=== PATIENT | female | born 1975 | race Hispanic/Latino ===

== ENCOUNTER 2020-05-24 13:51 | Emergency (ER) | payer MEDICARE ==
[2020-05-24] MEDS ORDERED: LEVETIRACETAM 500 MG/5 ML SD VIAL IV ONE (14:15)
[2020-05-24] MEDS ORDERED: DEXTROSE 50%-WATER 50 ML DISP.SYRIN IV ONE (16:35)
== END 2020-05-24 21:09 | disposition left against medical advice (07) ==
LOC: EDH 13:51
DX: G40.89 Other seizures (principal); I10 Essential (primary) hypertension; M19.90 Unspecified osteoarthritis, unspecified site; Z91.040 Latex allergy status; Z88.5 Allergy status to narcotic agent; Z88.1 Allergy status to other antibiotic agents; Z88.6 Allergy status to analgesic agent; Z88.8 Allergy status to other drugs, medicaments and biological substances
CPT/HCPCS: 36415; 70450; 80053; 80305; 81001; 82550; 83605; 85025; 93005; 96365; 96366; 96375; 99291; J1953; J7070

== ENCOUNTER → 2023-02-12 | Outpatient (CLI) | payer OTHER, SELFPAY ==
[~2023-02-12] MED LIST: REGADENOSON 0.4 MG/5 ML PF SYG IVP SCH
== END | disposition home or self-care (01) ==
LOC: RAH 08:32
PROVIDERS: ATTEND Internal Medicine Cardiovascular Disease
DX: I20.9 Angina pectoris, unspecified (principal); R07.9 Chest pain, unspecified; I25.9 Chronic ischemic heart disease, unspecified; I10 Essential (primary) hypertension; M79.602 Pain in left arm
CPT/HCPCS: 78452; 96374; 93017; J2785; A9500 ×2

== ENCOUNTER 2023-02-14 09:55 | Emergency (ER) | payer OTHER, SELFPAY ==
[~2023-02-14] VITALS: Ht 157.5 cm; Wt 48.1 kg
[2023-02-14] MEDS ORDERED: ACETAMINOPHEN WITH CODEINE 1 TAB TAB PO ONE (11:30)
[2023-02-14] MEDS ORDERED: HYDROCODONE/ACETAMINOPHEN 5/325 MG TAB PO ONE (11:30)
[2023-02-14 11:44] VITALS: BP 138/89
== END 2023-02-14 12:36 | disposition home or self-care (01) ==
LOC: EDH 09:55
DX: S96.912A Strain of unspecified muscle and tendon at ankle and foot level, left foot, initial encounter (principal); S80.812A Abrasion, left lower leg, initial encounter; G80.9 Cerebral palsy, unspecified; I10 Essential (primary) hypertension; Z88.5 Allergy status to narcotic agent; Z88.8 Allergy status to other drugs, medicaments and biological substances; Z91.040 Latex allergy status; X58.XXXA Exposure to other specified factors, initial encounter; Y93.89 Activity, other specified; Y92.89 Other specified places as the place of occurrence of the external cause; Y99.8 Other external cause status
CPT/HCPCS: 73600

== ENCOUNTER 2023-06-10 12:48 | Emergency (ER) | payer OTHER ==
[~2023-06-10] VITALS: Ht 162.6 cm; Wt 56.2 kg
[2023-06-10 12:53] VITALS: BP 163/90; PULSE 79; RESP 16
[2023-06-10 13:58] LABS: BASOPHILS % (AUTO) 0.6 % (0.0-5.0); EOSINOPHILS % (AUTO) 7.4 % (0.0-8.0); HEMATOCRIT 43.5 % (36-48); LYMPHOCYTES % (AUTO) 21.9 % (21.0-51.0); MEAN CORPUSCULAR HEMOGLOBIN 32.5 pg (27.0-33.0); MEAN CORPUSCULAR VOLUME 95.6 fL (79-99); MONOCYTES % (AUTO) 9.2 % (3.0-13.0); NEUTROPHILS % (AUTO) 60.6 % (40.0-77.0); PLATELET COUNT (AUTO) 223 K/uL (130-400); RED BLOOD CELL COUNT(AUTO) 4.55 MIL/uL (4.00-5.50); RED CELL DISTRIBUTION WIDTH 12.7 % (11.0-15.5); WHITE BLOOD COUNT (AUTO) 7.7 K/uL (4.8-10.8)
[2023-06-10 14:09] LABS: CARBON DIOXIDE 31 mmol/L (21-32); CHLORIDE 105 mmol/L (101-111); CREATININE 0.8 mg/dL (0.5-1.5); GLOMERULAR FILTR. RATE CALC 91 mL/min (>90); GLUCOSE,RANDOM 91 mg/dL (70-105); POTASSIUM 4.5 mmol/L (3.5-5.1); SODIUM SERUM 141 mmol/L (136-145); UREA NITROGEN, BLOOD 14 mg/dL (7-18)
[2023-06-10 14:13] LABS: ALANINE AMINOTRANSFERASE 34 U/L (12-78); ALBUMIN 3.7 g/dL (3.5-5.0); ASPARTATE AMINOTRANSFERASE 18 U/L (10-37); TOTAL PROTEIN, SERUM 7.3 g/dL (6.0-8.3)
[2023-06-10 14:14] LABS: CRP QUANTITATIVE < 2.00 mg/L (0.00-9.0)
[2023-06-10 15:01] LABS: ERYTHROCYTE SEDIMENTATION RATE 5 MM/HR (0-20)
== END 2023-06-10 15:03 | disposition home or self-care (01) ==
LOC: EDH 12:48
DX: G89.29 Other chronic pain (principal); M25.562 Pain in left knee; I10 Essential (primary) hypertension; Z88.5 Allergy status to narcotic agent; Z90.49 Acquired absence of other specified parts of digestive tract; Z91.040 Latex allergy status
CPT/HCPCS: 36415; 73562; 80053; 85025; 85651; 86140

== ENCOUNTER 2023-09-17 20:03 | Emergency (ER) | payer OTHER ==
[~2023-09-17] VITALS: Ht 162.6 cm; Wt 51.7 kg
[2023-09-17] MEDS ORDERED: BENZONATATE 100 MG CAPSULE PO STA (20:25)
[2023-09-17] MEDS ORDERED: IPRATROPIUM/ALBUTEROL SULFATE 3 ML SOLUTION IH ONE (20:30)
[2023-09-17 20:47] LABS: BASOPHILS # (AUTO) 0.06 K/uL (0.00-0.20); BASOPHILS % (AUTO) 0.5 % (0.0-5.0); EOSINOPHILS # (AUTO) 0.02 K/uL (0.00-0.70); EOSINOPHILS % (AUTO) 0.2 % (0.0-8.0); HEMATOCRIT 42.5 % (36-48); IMMATURE GRANULOCYTE ABSOLUTE 0.05 K/uL (0-1); LYMPHOCYTES # (AUTO) 2.4 K/uL (1.0-4.8); LYMPHOCYTES % (AUTO) 19.6 % (21.0-51.0); MEAN CORPUSCULAR HEMOGLOBIN 32.2 pg (27.0-33.0); MEAN CORPUSCULAR HGB CONC 34.4 g/dL (32.0-36.0); MEAN CORPUSCULAR VOLUME 93.6 fL (79-99); MONOCYTES # (AUTO) 0.8 K/uL (0.1-1.0); MONOCYTES % (AUTO) 6.6 % (3.0-13.0); NEUTROPHILS # (AUTO) 8.8 K/uL (1.8-7.7); NEUTROPHILS % (AUTO) 72.7 % (40.0-77.0); PLATELET COUNT (AUTO) 246 K/uL (130-400); RED BLOOD CELL COUNT(AUTO) 4.54 MIL/uL (4.00-5.50); RED CELL DISTRIBUTION WIDTH 12.2 % (11.0-15.5); WHITE BLOOD COUNT (AUTO) 12.1 K/uL (4.8-10.8)
[2023-09-17] MEDS ORDERED: HALOPERIDOL INJ 5 MG/ML VIAL ONE (20:55)
[2023-09-17] MEDS ORDERED: ONDANSETRON 4MG INJ ONE (20:55)
[2023-09-17] MEDS ORDERED: ONDANSETRON 4MG INJ IVP ONE (21:00)
[2023-09-17] MEDS ORDERED: HALOPERIDOL INJ 5 MG/ML VIAL IV SCH (21:00)
[2023-09-17 21:03] LABS: CREATININE 0.9 mg/dL (0.5-1.5); POTASSIUM 3.5 mmol/L (3.5-5.1)
[2023-09-17 21:08] LABS: B-TYPE NATRIURETIC PEPTIDE 21 pg/mL (0-100)
[2023-09-17 21:12] LABS: ALBUMIN 3.5 g/dL (3.5-5.0); BILIRUBIN,TOTAL 0.3 mg/dL (0.2-1.0); TOTAL PROTEIN, SERUM 7.7 g/dL (6.0-8.3)
[2023-09-17 21:47] LABS: INR < 0.93 (0.85-1.15); PROTHROMBIN TIME 10.6 SEC (9.6-11.6)
[2023-09-17 21:49] LABS: PARTIAL THROMBOPLASTIN TIME 26.2 SEC (26.3-35.5)
[2023-09-17] MEDS ORDERED: 0.9%NACL 1000ML 2,500 ML IV ONE (22:30)
[2023-09-17 23:20] LABS: SARS-CoV-2, RNA, NAAT NEGATIVE SARS CoV-2 (NEGATIVE)
[2023-09-17 23:24] LABS: INFLUENZA TYPE A Negative For Type A (NEGATIVE); INFLUENZA TYPE B Negative For Type B (NEGATIVE)
[2023-09-17] MEDS ORDERED: METO10TA41 PO (23:31)
[2023-09-17] MEDS ORDERED: OMEP40CA21 PO (23:31)
[2023-09-17] MEDS ORDERED: ONDA-104 PO (23:31)
[2023-09-17 23:57] VITALS: PULSE 117; RESP 26
[2023-09-18 00:41] VITALS: RESP 16
[2023-09-18 01:51] VITALS: BP 116/88; PULSE 98; O2SAT 99
== END 2023-09-18 02:10 | disposition home or self-care (01) ==
LOC: EDH 20:03
DX: R05.3 Chronic cough (principal); K21.9 Gastro-esophageal reflux disease without esophagitis; I10 Essential (primary) hypertension; Z21 Asymptomatic human immunodeficiency virus [HIV] infection status; Z88.0 Allergy status to penicillin; Z88.5 Allergy status to narcotic agent; Z90.49 Acquired absence of other specified parts of digestive tract; Z91.040 Latex allergy status; Z20.822 Contact with and (suspected) exposure to COVID-19
CPT/HCPCS: 99285; 96374; 71045; 87635; 82550; 84484; 80053; 83880; 84703; 85025; 85610; 85730; 87040 ×2; 87804 ×2; 83605; 36415; 93005; 94640; C9803; J7030; J1630; J2405

== ENCOUNTER 2025-07-07 13:16 | Observation (INO) | payer OTHER ==
[~2025-07-07] VITALS: Ht 157.5 cm; Wt 54.4 kg
[~2025-07-07 13:16] MED LIST changes: +ASPI-1114 PO; +DILT120C78 PO; +DOLU1TAB2 PO; +DOXA2TAB2 PO; +EZET10TA80 PO; +GABA-529 PO; +METO-409 PO; +MONT-39 PO; +ONDA-243 PO; -REGADENOSON 0.4 MG/5 ML PF SYG IVP SCH; +losartan PO
--- NOTE | 2025-07-07 13:22 | ERN ---
ED Note History of Present Illness Stated Complaint: HEMATEMESIS Chief Complaint: Hematemesis/Vomiting Blood Time Seen by MD: 13:18 Dictation: PATIENT IS A 50-YEAR-OLD FEMALE COMING IN TODAY WITH COMPLAINTS OF VOMITING TWO CUPS OF KP BLOOD WHEN SHE WOKE UP FROM A NAP AND HOUR AGO. SHE DENIES ANY ABDOMINAL PAIN AT THIS TIME NO HISTORY OF BLOOD THINNERS, NO GASTRITIS NO VARICES NO CIRRHOSIS. PRIMARY DOCTORS IN [facility]. NO PAIN AT THIS TIME. DENIES HISTORY OF MAALOX OR MILK OF MAGNESIA USE. DENIES ANY HISTORY OF GI BLEED UPPER OR LOWER Allergies: Coded Allergies: Iodinated Contrast Media (Verified Allergy, Severe, SEIZURES, 02/23/25) Latex, Natural Rubber (Unverified Allergy, Unknown, 05/24/20) Penicillins (Unverified Allergy, Unknown, 09/17/23) acetaminophen (Unverified Allergy, Unknown, 09/17/23) bacitracin (Unverified Allergy, Unknown, 05/24/20) hydrocodone (Unverified Allergy, Unknown, 09/17/23) morphine (Unverified Allergy, Unknown, 05/24/20) neomycin (Unverified Allergy, Unknown, 05/24/20) polymyxin B (Unverified Allergy, Unknown, 05/24/20) Home Meds Reported Medications Doxazosin Mesylate (Doxazosin Mesylate) 2 Mg Tablet, 1 TAB PO HS for 30 Days, #30 TAB 0 Refills 02/22/25 Gabapentin (Gabapentin) 100 Mg Capsule, 300 CAP PO DAILY for 30 Days, #90 CAP 0 Refills 02/22/25 Metoprolol Succinate (Metoprolol Succinate) 100 Mg Tab.er.24h, 1 TAB PO BID for 30 Days, #30 TAB 0 Refills 02/22/25 Ezetimibe (Ezetimibe) 10 Mg Tablet, 1 TAB PO DAILY for 30 Days, #30 TAB 0 Refills 02/22/25 [losartan] No Conflict Check, 50 MG PO DAILY 02/22/25 Montelukast Sodium (Montelukast Sodium) 10 Mg Tablet, 1 TAB PO DAILY for 30 Days, #30 TAB 0 Refills 02/22/25 Ondansetron (Ondansetron Odt) 4 Mg Tab.rapdis, 4 MG PO DAILY for nausea, TAB 02/22/25 Aspirin (Eleanor Chewable) 81 Mg Tab.chew, 81 MG PO DAILY, TAB.CHEW 02/22/25 Dolutegravir Sodium/Lamivudine (Dovato 50-300 mg Tablet) 50 Mg-300 Mg Tablet, 1 TAB PO DAILY for 30 Days, #30 TAB 0 Refills 02/22/25 Diltiazem HCl (Diltiazem ER) 120 Mg Capsule.er, 1 CAP PO DAILY for 30 Days, #30 CAP 0 Refills 02/22/25 Past Medical History Past Medical History: High Cholesterol, HIV, Hypertension, Other Additional Past Medical Hx: CEREBRAL PALSY Surgical History: Cholecystectomy, Surgical History Other: BILATERAL LEGS Family History: Negative Social History: Negative, Lives with family History: Not Applicable RN Note Reviewed/Agreed w/PFSH: Yes Review of System Dictation CONSTITUTIONAL: NEGATIVE EXCEPT FOR HPI HEAD/FACE: NEGATIVE EXCEPT FOR HPI EENT: NEGATIVE EXCEPT FOR HPI RESPIRATORY: NEGATIVE EXCEPT FOR HPI GASTROINTESTINAL/ABDOMINAL: NEGATIVE EXCEPT FOR HPI HEMATEMESIS GENITOURINARY: NEGATIVE EXCEPT FOR HPI MUSCULOSKELETAL: NEGATIVE EXCEPT FOR HPI INTEGUMENTARY: NEGATIVE EXCEPT FOR HPI NEUROLOGICAL/PSYCH: NEGATIVE EXCEPT FOR HPI HEMATOLOGIC/LYMPHATIC: NEGATIVE EXCEPT FOR HPI ALL SYSTEMS NEGATIVE, EXCEPT NOTED ABOVE. 13 POINT REVIEW OF SYSTEMS ASSESSED AND ALL NEGATIVE EXCEPT FOR ABOVE. Initial Vital Sign VS Vital Signs Date Time Temp Pulse Resp B/P (MAP) Pulse Ox O2 Delivery O2 Flow Rate FiO2 07/07/25 13:17 98.2 86 19 136/84 97 Room Air 0 07/07/25 14:26 21 Physical Exam Dictation VITAL SIGNS REVIEWED DAVIDE VILLAFANA IN ROOM WITH THE EXAM. GENERAL APPEARANCE: ALERT, ORIENTED X 3, NO ACUTE DISTRESS, WELL DEVELOPED, NOURISHED. 0/10 PAIN AT THE PRESENT TIME HEAD AND FACE: NON-TRAUMATIC. EYES: PERRL, PINK CONJUNCTIVAS, EYELID NO TRAUMA, ANTERIOR CHAMBER WITH ARCUS SENILIS. EARS: PINNAS INTACT AND NO SIGNS OF TRAUMA OR ERYTHEMA EAR CANALS CLEAR AND NO DISCHARGE TM NO ERYTHEMA NOSE: NO DISCHARGE, NO BLEEDING. OROPHARYNX: MOUTH NORMAL, TONGUE PINK, PHARYNX CLEAR,NO ERYTHEMA, TONSILS NO EXUDATES, NO ABSCESSES NOTED, MUCOUS MEMBRANE MOIST NECK: SUPPLE, NON-TENDER, NO THYROMEGALY, NO MASSES, NO JVD, NO BRUITS BREAST:DEFERRED CHEST:NO TENDERNESS, NO CREPITUS, NO PARADOXICAL MOVEMENT, NO RETRACTIONS LUNGS:CLEAR, WELL-VENTILATED, SYMMETRIC, NO RALES, NO WHEEZING, NO RHONCHI, NO STRIDOR, GOOD BREATH SOUNDS BILATERALLY HEART: REGULAR RATE, REGULAR RHYTHM, NO MURMUR, NO GALLOPS VASCULAR: NO PERIPHERAL EDEMA, ABDOMEN: SOFT, POSITIVE BOWEL SOUNDS, NONDISTENDED, NO GUARDING, NONTENDER, NO REBOUND, NO MASSES NO HEPATOMEGALY, NO SPLENOMEGALY, NO HOLLAND'S SIGN, NO HERNIAS. RECTAL: NO EXTERNAL LESIONS, TONE IS NORMAL. NO HEMORRHOIDS INTERNALLY, STOOL FOR GUAIAC SENT TO LAB. PATIENT ON MENSES. GENITAL: DEFERRED NEUROLOGICAL: NORMAL SPEECH, MOTOR FUNCTION INTACT, SENSORY FUNCTION INTACT MUSCULOSKELETAL: NECK NONTENDER, FULL RANGE OF MOTION, BACK NONTENDER, FULL RANGE OF MOTION, EXTREMITIES: NONTENDER, FULL RANGE OF MOTION SKIN: COLOR PINK, DRY, NO TURGOR, NO RASH, NO LACERATIONS, NO ABRASIONS, NO CONTUSIONS. LYMPHATIC: DEFERRED Results (Laboratory/Radiology) Laboratory/Radiology Laboratory Tests Test 07/07/25 13:34 07/07/25 17:42 White Blood Count 10.4 K/uL (4.8-10.8) Red Blood Count 4.34 MIL/uL (4.00-5.50) Hemoglobin 14.3 g/dL (12.0-16.0) Hematocrit 41.0 % (36-48) Mean Corpuscular Volume 94.5 fL (79-99) Mean Corpuscular Hemoglobin 32.9 pg (27.0-33.0) Mean Corpuscular Hemoglobin Concent 34.9 g/dL (32.0-36.0) Red Cell Distribution Width 12.7 % (11.0-15.5) Platelet Count 288 K/uL (130-400) Mean Platelet Volume 9.9 fL (7.5-10.5) Immature Granulocyte % (Auto) 0.3 % (0-1) Neutrophils (%) (Auto) 78.2 % (40.0-77.0) H Lymphocytes (%) (Auto) 13.2 % (21.0-51.0) L Monocytes (%) (Auto) 5.7 % (3.0-13.0) Eosinophils (%) (Auto) 2.2 % (0.0-8.0) Basophils (%) (Auto) 0.4 % (0.0-5.0) Neutrophils # (Auto) 8.2 K/uL (1.8-7.7) H Lymphocytes # (Auto) 1.4 K/uL (1.0-4.8) Monocytes # (Auto) 0.6 K/uL (0.1-1.0) Eosinophils # (Auto) 0.23 K/uL (0.00-0.70) Basophils # (Auto) 0.04 K/uL (0.00-0.20) Absolute Immature Granulocyte (auto 0.03 K/uL (0-1) Nucleated Red Blood Cells 0.0 % (0.0-0.19) Sodium Level 142 mmol/L (136-145) Potassium Level 4.0 mmol/L (3.5-5.1) Chloride Level 106 mmol/L (101-111) Carbon Dioxide Level 27 mmol/L (21-32) Blood Urea Nitrogen 10 mg/dL (7-18) Creatinine 0.6 mg/dL (0.5-1.0) Glomerular Filtration Rate Calc 110 mL/min (>90) Random Glucose 94 mg/dL (70-105) Total Calcium 8.8 mg/dL (8.5-10.1) Triglycerides Level 80 mg/dL (30-200) Lipase 216 U/L (16-77) H Stool Occult Blood POSITIVE (NEGATIVE) H REASON: LEFT UPPER QUADRANT PAIN TENDERNESS COMPARISON: None. FINDINGS: Lung bases are clear. There are no focal liver lesions. There are normal-appearing kidneys.. Spleen and pancreas appear unremarkable. The gallbladder is surgically absent with clips in the gallbladder fossa.. Bowel loops appear unremarkable. This includes normal appearance of the appendix There is no evidence of free fluid or intraperitoneal air. There are no focal fluid collections. Aorta and retroperitoneum appear normal as do pelvic soft tissue structures. The anterior abdominal wall is intact. Osseous structures appear unremarkable. LAB INSTRUCTOR structures appears within normal limits no mass or free fluid seen in the pelvis. IMPRESSION: 1. Negative noncontrast CT abdomen and pelvis. CT was performed with one or more following dose reduction techniques: automated exposure control, adjustment of the mA and kv according to parish Labs Reviewed?: Yes ED Course ED Course Orders Procedure Category Date Status Time Cbc With Differential LAB 07/07/25 Complete 13:19 Pantoprazole 40mg Inj PHA 07/07/25 Complete (Protonix 40mg Inj 13:30 Lipase LAB 07/07/25 Complete 13:19 Basic Metabolic Panel LAB 07/07/25 Complete 13:19 Triglycerides LAB 07/07/25 Complete 14:08 Ct Abdomen/Pelvis W/O CT 07/07/25 Resulted Contrast 14:53 Occult Blood Stool LAB 07/07/25 Complete Single Only 17:42 Dicyclomine Hcl PHA 07/07/25 Complete (Bentyl 20mg Inj) 18:30 Admit Orders ADM 07/07/25 Verified 18:34 Edm Admit Bridge Order ADM 07/07/25 Verified 18:34 Current Medications Medications (Trade) Dose Ordered Sig/Ayla Route PRN Reason Start Time Stop Time Status Last Admin Dose Admin Dicyclomine HCl (Bentyl 20mg Inj) 20 mg ONCE ONCE IM 07/07/25 18:30 07/07/25 18:31 DC Pantoprazole Sodium (PROTonix 40MG INJ) 40 mg ONCE ONCE IVP 07/07/25 13:30 07/07/25 13:31 DC 07/07/25 14:47 Vital Signs Date Time Temp Pulse Resp B/P (MAP) Pulse Ox O2 Delivery O2 Flow Rate FiO2 07/07/25 16:35 97.9 68 19 134/91 98 Room Air* 0 21 07/07/25 14:26 98.2 72 17 144/83 99 Room Air* 0 21 07/07/25 13:17 98.2 86 19 136/84 97 Room Air 0 1820/PATIENT AND BROTHER AT BEDSIDE ARE AWARE THAT I WE WILL BE ADMITTING HER HOSPITAL FOR UPPER GI BLEED/HEMATEMESIS ELEVATED LIPASE AND INTRACTABLE ABDOMINAL PAIN. ALL QUESTIONS [id number]/ 1835/SPOKE WITH LIOR MATHIS HOSPITALIST REVIEWED GUAIAC STOOL, PAIN MANAGEMENT AND CT RESULTS THEY AGREED TO ADMIT PATIENT. Medical Decision Making MDM MDM: DIFFERENTIAL DIAGNOSIS: UPPER GI BLEED/VARICES/ELECTROLYTE IMBALANCE/DEHYDRATION/ACUTE PANCREATITIS/DIVERTICULITIS RATIONALE: TESTS CONSIDERED AND ORDERED SECONDARY TO SHARED DECISION MAKING INCLUDE: LABS, AND RADIOLOGY PREVIOUS OUTSIDE RECORDS REVIEWED: OLD ER VISITS. RISK OF COMPLICATION AND/OR MORBIDITY OR MORTALITY OF PATIENT MANAGEMENT: NONE MEDICATIONS-PER MEDICATION RECONCILIATION NEED FOR HOSPITALIZATION: PATIENT DOES MEET CRITERIA FOR HOSPITALIZATION. MILD, WE WILL REQUIRE PAIN MANAGEMENT AND RETAIL TRAINING MANAGER CONSULTATION NEED FOR EMERGENCY MAJOR/MINOR SURGERY: NO THERE ARE NO SOCIAL CONCERNS WITH THIS PATIENT. PRESCRIPTION DRUG MANAGEMENT PRESCRIPTIONS WILL INCLUDE SYMPTOMATIC CARE PATIENT'S PRIOR EXTERNAL MEDICAL RECORDS FROM OTHER ER VISITS WERE REVIEWED BY ME INDICATED. PRIOR TESTING AND RESULTS FROM PREVIOUS VISITS WERE REVIEWED. PRIOR TESTS WERE TAKEN INTO ACCOUNT WITH MEDICAL DECISION MAKING AND RESOURCE UTILIZATION, INDEPENDENT HISTORIAN/HISTORIANS WERE USED TO OBTAIN COMPLETE MEDICAL HISTORY. I INDEPENDENTLY INTERPRETED THE TEST THAT WERE PERFORMED, RESULTS WERE REVIEWED BY ME AND CONSIDERED FINDINGS ON RADIOLOGY IF ORDERED. MEDICAL MANAGEMENT AND EXAMINATION INTERPRETATION DISCUSSIONS WERE HAD BY ME WITH OTHER QUALIFIED HEALTHCARE PROFESSIONALS INDICATED FOR THE PATIENT'S CARE. DX & DISP Disposition: Inpatient Decision to Admit Time: 18:29 Departure Impression: Primary Impression: Hematemesis of unknown etiology Additional Impressions: Elevated lipase, Intractable left upper quadrant abdominal pain Condition: Stable Referrals: [facility] (PCP) Time of Disposition: 18:29 I have reviewed the case, and I agree with, Diagnosis and Plan KEREN DIAZ NP Jul 07, 2025 13:22
[2025-07-07 13:52] LABS: IMMATURE GRANULOCYTE ABSOLUTE 0.03 K/uL (0-1); NUCLEATED RED BLOOD CELLS 0.0 % (0.0-0.19); PLATELET COUNT (AUTO) 288 K/uL (130-400); RED BLOOD CELL COUNT(AUTO) 4.34 MIL/uL (4.00-5.50); RED CELL DISTRIBUTION WIDTH 12.7 % (11.0-15.5); WHITE BLOOD COUNT (AUTO) 10.4 K/uL (4.8-10.8)
[2025-07-07 13:59] LABS: CREATININE 0.6 mg/dL (0.5-1.0); GLOMERULAR FILTR. RATE CALC 110.0 mL/min (>90); GLUCOSE,RANDOM 94.0 mg/dL (70-105); SODIUM SERUM 142.0 mmol/L (136-145); UREA NITROGEN, BLOOD 10.0 mg/dL (7-18)
--- NOTE | 2025-07-07 16:09 | HMCIMG ---
CT ABDOMEN/PELVIS W/O CONTRAST REASON: LEFT UPPER QUADRANT PAIN TENDERNESS COMPARISON: None. FINDINGS: Lung bases are clear. There are no focal liver lesions. There are normal-appearing kidneys.. Spleen and pancreas appear unremarkable. The gallbladder is surgically absent with clips in the gallbladder fossa.. Bowel loops appear unremarkable. This includes normal appearance of the appendix There is no evidence of free fluid or intraperitoneal air. There are no focal fluid collections. Aorta and retroperitoneum appear normal as do pelvic soft tissue structures. The anterior abdominal wall is intact. Osseous structures appear unremarkable. CARBON ACCOUNTANT structures appears within normal limits no mass or free fluid seen in the pelvis. IMPRESSION: 1. Negative noncontrast CT abdomen and pelvis. CT was performed with one or more following dose reduction techniques: automated exposure control, adjustment of the mA and kv according to patient's size, or use of a iterative reconstruction technique.
[2025-07-07] MEDS: DICYCLOMINE 20MG (10MG/ML) AMP IM ONE (18:38)
--- NOTE | 2025-07-07 18:53 | HP ---
[facility] HISTORY & PHYSICAL Date Patient Seen: Jul 07, 2025 Time of Visit: 2029 Supervising Physician: [Dr. Candido Patten ] Primary Care Physician: [Dr. Melvi Flores ] Outpatient Specialists: [ ] Inpatient Consults: [Dr. Ritesh Kate-GI ] PROBLEM LIST: Hematemesis-POA Intractable LUQ pain-POA Elevated lipase without imaging signs of pancreatitis, suspect reactive-POA Primary HTN HLD HIV Cerebral palsy PLAN: -Admit to medsurg telemetry -IV Protonix BID -PO Sucralfate x 1 pending GI studies -Consult GI MD, Dr. Kate, pending eval -Obtain gastric occult -IV NS @ 100 mls/hr -Type and screen, transfuse if Hg drops below 7 -Obtain H&H q6H serially for the next 24 hours -Manage abdominal pain and N/V PRN -Monitor CD4, LFTs, amylase and lipase levels HPI: [Patient is a 50-year-old female with PMH significant for HIV, HTN, HLD and cerebral palsy who has presented to the ED concerning acute onset hematemesis de scribed as 2 cups of bright red blood with no known triggers. She claims this is the first time it ever happened to her. She denies taking any blood thinners, NSAID abuse, ETOH dependence or DOAC; no prior HX of GI bleed, liver cirrhosis, or varices. She is currently on her menstrual cycle. Significant negatives are fever, chills, chest pain, diarrhea, constipation, melena or hematochezia. Pertinent positives are epigastric and LUQ abdominal pain. ED work up was unremarkable except for positive FOBT with stable H&H. CT AP was negative for acute findings. She was give a dose of IV Protonix and IM Bentyl. Physical assessment is unrevealing without abdominal tenderness or signs of ischemia or peritonitis. Abdomen is soft and with normoactive bowel sounds. Goals of care were discussed with the patient verbalizing understanding and agreement. ] PAST MEDICAL HX: see above PAST SURGICAL HX: noncontributory SOCIAL HISTORY: No tobacco, ETOH, or illicit drug use Coded Allergies: Iodinated Contrast Media (Verified Allergy, Severe, SEIZURES, 02/23/25) Latex, Natural Rubber (Unverified Allergy, Unknown, 05/24/20) Penicillins (Unverified Allergy, Unknown, 09/17/23) acetaminophen (Unverified Allergy, Unknown, 09/17/23) bacitracin (Unverified Allergy, Unknown, 05/24/20) hydrocodone (Unverified Allergy, Unknown, 09/17/23) morphine (Unverified Allergy, Unknown, 05/24/20) neomycin (Unverified Allergy, Unknown, 05/24/20) polymyxin B (Unverified Allergy, Unknown, 05/24/20) REVIEW OF SYSTEMS: 12 point ROS reviewed with patient. Pertinent positives mentioned above. Otherwise negative. PHYSICAL EXAM: GENERAL: alert, awake oriented x 3 HEENT: EOMI, Sclera non icteric, moist mucosa NECK: Supple, no JVD, trachea midline LUNGS: Clear breath sounds bilaterally. No wheezes HEART: Regular rate and rhythm. Normal S1 and S2, without murmurs ABD: Abdomen soft, nontender. Bowel sounds present EXT: No clubbing cyanosis or edema NEURO: Alert and oriented to person, follows commands Vital Signs (last 8hr) Date Time Temp Pulse Resp B/P (MAP) Pulse Ox O2 Delivery O2 Flow Rate FiO2 07/07/25 16:35 97.9 68 19 134/91 98 Room Air* 0 21 07/07/25 14:26 98.2 72 17 144/83 99 Room Air* 0 21 07/07/25 13:17 98.2 86 19 136/84 97 Room Air 0 LABS: Hematology Labs: Test 07/07/25 13:34 Range/Units White Blood Count 10.4 4.8-10.8 K/uL Red Blood Count 4.34 4.00-5.50 MIL/uL Hemoglobin 14.3 12.0-16.0 g/dL Hematocrit 41.0 36-48 % Mean Corpuscular Volume 94.5 79-99 fL Mean Corpuscular Hemoglobin 32.9 27.0-33.0 pg Mean Corpuscular Hemoglobin Concent 34.9 32.0-36.0 g/dL Red Cell Distribution Width 12.7 11.0-15.5 % Platelet Count 288 130-400 K/uL Mean Platelet Volume 9.9 7.5-10.5 fL Immature Granulocyte % (Auto) 0.3 0-1 % Neutrophils (%) (Auto) 78.2 H 40.0-77.0 % Lymphocytes (%) (Auto) 13.2 L 21.0-51.0 % Monocytes (%) (Auto) 5.7 3.0-13.0 % Eosinophils (%) (Auto) 2.2 0.0-8.0 % Basophils (%) (Auto) 0.4 0.0-5.0 % Neutrophils # (Auto) 8.2 H 1.8-7.7 K/uL Lymphocytes # (Auto) 1.4 1.0-4.8 K/uL Monocytes # (Auto) 0.6 0.1-1.0 K/uL Eosinophils # (Auto) 0.23 0.00-0.70 K/uL Basophils # (Auto) 0.04 0.00-0.20 K/uL Absolute Immature Granulocyte (auto 0.03 0-1 K/uL Nucleated Red Blood Cells 0.0 0.0-0.19 % Chemistry Labs: Test 07/07/25 13:34 Range/Units Sodium Level 142 136-145 mmol/L Potassium Level 4.0 3.5-5.1 mmol/L Chloride Level 106 101-111 mmol/L Carbon Dioxide Level 27 21-32 mmol/L Blood Urea Nitrogen 10 7-18 mg/dL Creatinine 0.6 0.5-1.0 mg/dL Glomerular Filtration Rate Calc 110 >90 mL/min Random Glucose 94 70-105 mg/dL Total Calcium 8.8 8.5-10.1 mg/dL Triglycerides Level 80 30-200 mg/dL Lipase 216 H 16-77 U/L DIAGNOSTICS / RADIOLOGY RESULTS: [ ] PLAN NEURO: Minimize central acting medications as possible. Maintain fall precautions, adequate lighting during the day PULMONARY: Supplemental 02 as needed. Maintain aspiration precautions at all times CARDIOVASCULAR: Follow hemodynamics. Vital signs per facility protocol GI & NUTRITION: Continue with nutritional support. Continue stool softeners and laxatives as needed. KIDNEYS & ELECTROLYTES: Strict monitoring of intake, output and overall fluid balance. Avoid nephrotoxic medications to the extent possible. Medications to be dosed according to renal function. Monitor electrolytes and replace as needed ENDOCRINE: Maintain blood glucose between 100-180 at all times. Hypoglycemia protocol in place INFECTIOUS DISEASE: Trend temperature, WBC and procalcitonin level Follow cultures, deescalate antibiotics as soon as possible. Panculture if new onset fever ONCOLOGY/HEMATOLOGY/COAGULATION: Monitor for s/s of bleeding Monitor hemoglobin, coagulation studies as needed SKIN: Pressure ulcer prevention per facility protocol Specialty mattress ORTHO/REHAB: Continue PT/OT Prophylaxis: Continue GI and DVT prophylaxis: SCD only, no AC due to GI bleed Code Status: Full Resuscitation Disposition: LIOR GONZÁLES Jul 07, 2025 18:53
[2025-07-07 20:11] LABS: ASPARTATE AMINOTRANSFERASE 34.0 U/L (10-37); TOTAL PROTEIN, SERUM 6.5 g/dL (6.0-8.3)
[2025-07-07 20:16] LABS: INR 0.98 (0.85-1.15)
[2025-07-07] MEDS: SUCRALFATE 1 GM/10 ML PO ONE (20:27)
[2025-07-07] MEDS: 0.9%NACL 1000ML 1,000 ML IV SCH (20:28)
--- NOTE | 2025-07-07 20:52 | NUR ---
DR LOPEZ BULL GANG WORKER PAGED FOR GI CONSULT PENDING CALL BACK;
--- NOTE | 2025-07-07 21:14 | NUR ---
REPORT ENDORSED TO MARIA LUZ VILLAFANA
--- NOTE | 2025-07-07 21:19 | NUR ---
GI CONSULT COMPLETE
--- NOTE | 2025-07-07 21:27 | NUR ---
CONSULT DR LOPEZ CALLED AND WAS INFORMED ABOUT NEW CONSULT. NEW ORDERS RECEIVED, PLEASE REFER TO CPOE.
[2025-07-07 21:30] VITALS: BP 154/93; PULSE 77; RESP 20; TEMP 97.7; O2SAT 98
--- NOTE | 2025-07-07 21:30 | NUR ---
ADMIT PT ADMITTED TO ROOM 328, AAOX3. DENIES OF ANY ABDOMINAL PAINS NOR DISCOMFORT AT THIS TIME. ADMISSION CARE DONE. ADMISSION V/S MONITORED, STABLE. PLACED TELE MONITOR ON PT, #45 WITH NSR HR=69. CONTINUED IVF OF NS REGULATED AT 100CC/HR. PLACED ON CLEAR LIQUID DIET FOR NOW, TOLERATING WELL. ADMISSION DATA BASE COMPLETED. HOME MEDS UPDATED IN THE COMPUTER. INSTRUCTED TO BE NPO POST MN FOR EGD IN AM. PT VERBALIZES UNDERSTANDING. CONSENT FOR EGD SIGNED BY PT, WITNESSED BY IN HOME TUTOR. FORM PLACED IN CHART. ORIENTED TO ROOM AND UNIT. IN FOR MORE CARE AND MANAGEMENT. Addendum: 07/07/25 at 2246 by MARIA LUZ PIZARRO RN RN Amended: Links added.
[2025-07-08] VITALS (25 sets, daily range): BP systolic 120–161; BP diastolic 50–98; PULSE 62–95; RESP 15–19; TEMP 97.3–98.5; O2SAT 98
--- NOTE | 2025-07-08 05:18 | NUR ---
ROUNDS PT SLEPT AT INTERVALS DURING THE SHIFT. NO DISTRESS NOTED. KEPT NPO FOR GI PROCEDURE TODAY. FOR MORE CARE AND MANAGEMENT.
[2025-07-08 05:40] LABS: IMMATURE GRANULOCYTE ABSOLUTE 0.02 K/uL (0-1); NUCLEATED RED BLOOD CELLS 0.0 % (0.0-0.19); PLATELET COUNT (AUTO) 243 K/uL (130-400); RED BLOOD CELL COUNT(AUTO) 4.01 MIL/uL (4.00-5.50); RED CELL DISTRIBUTION WIDTH 12.5 % (11.0-15.5); WHITE BLOOD COUNT (AUTO) 6.8 K/uL (4.8-10.8)
[2025-07-08 05:42] LABS: AMPHET/METH SCREEN,URINE NEGATIVE (NEGATIVE); BARBITURATE SCREEN, URINE NEGATIVE (NEGATIVE); CANNABINOID SCREEN,URINE NEGATIVE (NEGATIVE); COCAINE SCREEN,URINE NEGATIVE (NEGATIVE)
[2025-07-08 05:55] LABS: % IRON SATURATION 51.6 % (22-44); IRON, SERUM 140.0 mcg/dL (50-170)
[2025-07-08 05:57] LABS: PHOSPHORUS 3.6 mg/dL (2.5-4.9)
[2025-07-08] MEDS ORDERED: MIDAZOLAM HCL 1 MG/ML 2ML VIAL ONE (08:29)
[2025-07-08] MEDS ORDERED: GLYCOPYRROLATE 0.2 MG/ML 5 ML VIAL ONE (08:29)
[2025-07-08] MEDS ORDERED: LIDOCAINE PF 100MG/5ML (2%) SYRINGE 5ML ONE (08:30)
--- NOTE | 2025-07-08 09:48 | CONS ---
GASTROENTEROLOGY CONSULTATION NOTE Date of Consultation: Jul 08, 2025 Time of Consultation: 08:00 History of Present Illness: [ ] Reason for consult: hematemesis Ms. Allison Dill is a 50-year-old female with a past medical history of HIV on ART, hypertension, hyperlipidemia, and cerebral palsy who presented to the emergency department with two episodes of small-volume hematemesis. The patient reports that the hematemesis started yesterday after she took a nap. She experienced vomiting of red blood, which occurred twice. This is the first time she has experienced such an event. The patient denies any changes in her bowel habits since the onset of hematemesis. She mentions having pain on her side, which a doctor previously noted was swollen and inflamed. The patient was given medication for this condition but cannot recall the name or duration of treatment. Immediately following the episodes of vomiting, she experienced severe cramping in her abdominal area. Ms. Dill reports a history of cerebral palsy. She also mentions that doctors found blood in her skull, though the context and timing of this finding are unclear. The patient denies recent illnesses such as flu. Her eating habits have remained unchanged. Regarding her HIV status, the patient's adherence to antiretroviral therapy is unclear. She denies recent fever. The patient has not had an endoscopy procedure before and denies a history of acid reflux, heartbur n, or previous abdominal surgeries. Medical History - HIV - Hypertension - Hyperlipidemia - Cerebral palsy Current and Past Medications and Supplements - Antiretroviral therapy for HIV - Medication for hypertension - Medication for hyperlipidemia - Unspecified medication for swollen and inflamed area on side Social History - Living situation: Requires assistance with medication management Review of Systems - General: Denies fever - Gastrointestinal: Hematemesis, abdominal cramping, denies changes in bowel habits - Musculoskeletal: Pain in upper side [ ] Coded Allergies: Iodinated Contrast Media (Verified Allergy, Severe, SEIZURES, 02/23/25) Latex, Natural Rubber (Unverified Allergy, Unknown, 05/24/20) Penicillins (Unverified Allergy, Unknown, 09/17/23) acetaminophen (Unverified Allergy, Unknown, 09/17/23) bacitracin (Unverified Allergy, Unknown, 05/24/20) hydrocodone (Unverified Allergy, Unknown, 09/17/23) morphine (Unverified Allergy, Unknown, 05/24/20) neomycin (Unverified Allergy, Unknown, 05/24/20) polymyxin B (Unverified Allergy, Unknown, 05/24/20) Physical Exam: GEN: Awake, alert, oriented in person, time and place, and in no acute distress. HEENT: No sinus tenderness. Tympanic membranes were not examined. No rhinorrhea. Oral pharyngeal mucosa is pink, moist and within normal limits. Neck is supple with no cervical lymphadenopathy, thyromegaly or JVD. CHEST: Inspection, palpation and percussion of the chest were unremarkable. Lung auscultation revealed normal breath sounds bilaterally. CARDIAC: PMI is within normal limits. Heart sounds are regular. Normal S1, S2. No gallop or murmur. ABD: Soft, non-tender and not distended. No peritoneal signs on palpation. No organomegaly. Normal bowel sounds. EXT: No cyanosis or clubbing. No edema. SKIN: Intact. No rashes. JOINTS: No evidence of synovitis or acute arthritis. NEURO: Alert and oriented to name, place and person. Cranial nerve examination is unremarkable. No focal motor deficits. Normal speech. Gait is normal. Strength is normal. Vital Sign (Last 24 Hours) 07/08/25 07/08/25 09:15 09:35 Temp 97.3 Pulse 74 Resp 17 B/P (MAP) 140/83 Pulse Ox 99 O2 Delivery Room Air O2 Flow Rate 0.0 FiO2 21 Intake & Output (last 24hrs) 07/07/25 07/07/25 07/08/25 15:00 23:00 07:00 Intake Total 240 ml 670.0 ml Balance 240 ml 670.0 ml Laboratory: [ ] Laboratory: Test 07/08/25 05:58 07/08/25 05:24 07/08/25 05:20 07/07/25 19:39 Range/Units Whole Blood Glucose 94 70-110 MG/DL White Blood Count 6.8 # 4.8-10.8 K/uL Red Blood Count 4.01 4.00-5.50 MIL/uL Hemoglobin 13.5 12.0-16.0 g/dL Hematocrit 38.7 36-48 % Mean Corpuscular Volume 96.5 79-99 fL Mean Corpuscular Hemoglobin 33.7 H 27.0-33.0 pg Mean Corpuscular Hemoglobin Concent 34.9 32.0-36.0 g/dL Red Cell Distribution Width 12.5 11.0-15.5 % Platelet Count 243 130-400 K/uL Mean Platelet Volume 9.6 7.5-10.5 fL Immature Granulocyte % (Auto) 0.3 0-1 % Neutrophils (%) (Auto) 44.0 40.0-77.0 % Lymphocytes (%) (Auto) 30.5 21.0-51.0 % Monocytes (%) (Auto) 8.1 3.0-13.0 % Eosinophils (%) (Auto) 16.4 H 0.0-8.0 % Basophils (%) (Auto) 0.7 0.0-5.0 % Neutrophils # (Auto) 3.0 1.8-7.7 K/uL Lymphocytes # (Auto) 2.1 1.0-4.8 K/uL Monocytes # (Auto) 0.6 0.1-1.0 K/uL Eosinophils # (Auto) 1.12 H 0.00-0.70 K/uL Basophils # (Auto) 0.05 0.00-0.20 K/uL Absolute Immature Granulocyte (auto 0.02 0-1 K/uL Nucleated Red Blood Cells 0.0 0.0-0.19 % White Cell Morphology Comment See comments Phosphorus Level 3.6 2.5-4.9 mg/dL Magnesium Level 2.00 1.80-2.40 mg/dL Iron Level 140 50-170 mcg/dL Total Iron Binding Capacity 271 250-450 mcg/dL Percent Iron Saturation 51.6 H 22-44 % Amylase Level 46 25-115 U/L Lipase 29 16-77 U/L Serum Test, Qualitative NEGATIVE NEGATIVE Urine Opiates Screen NEGATIVE NEGATIVE Urine Barbiturates Screen NEGATIVE NEGATIVE Urine Phencyclidine Screen NEGATIVE NEGATIVE Urine Amphetamines Screen NEGATIVE NEGATIVE Urine Benzodiazepines Screen NEGATIVE NEGATIVE Urine Cocaine Screen NEGATIVE NEGATIVE Urine Marijuana (THC) Screen NEGATIVE NEGATIVE Prothrombin Time 10.4 9.6-11.6 SEC Prothromb Time International Ratio 0.98 0.85-1.15 Activated Partial Thromboplast Time 27.6 26.3-35.5 SEC Total Bilirubin 0.7 0.2-1.0 mg/dL Direct Bilirubin 0.2 0.0-0.3 mg/dL Aspartate Amino Transf (AST/SGOT) 34 10-37 U/L Alanine Aminotransferase (ALT/SGPT) 48 12-78 U/L Alkaline Phosphatase 86 50-136 U/L Total Protein 6.5 6.0-8.3 g/dL Albumin 3.3 L 3.5-5.0 g/dL Test 07/07/25 17:42 07/07/25 13:34 Range/Units Stool Occult Blood POSITIVE H NEGATIVE Sodium Level 142 136-145 mmol/L Potassium Level 4.0 3.5-5.1 mmol/L Chloride Level 106 101-111 mmol/L Carbon Dioxide Level 27 21-32 mmol/L Blood Urea Nitrogen 10 7-18 mg/dL Creatinine 0.6 0.5-1.0 mg/dL Glomerular Filtration Rate Calc 110 >90 mL/min Random Glucose 94 70-105 mg/dL Total Calcium 8.8 8.5-10.1 mg/dL Triglycerides Level 80 30-200 mg/dL Current Medications Medications (Trade) Dose Ordered Sig/Ayla Route PRN Reason Start Time Stop Time Status Last Admin Dose Admin Hydralazine HCl (APRESOLine 20MG INJ) 10 mg Q6H PRN IV SBP GREATER THAN 180 07/07/25 19:00 08/06/25 18:59 Labetalol HCl (TRANdate 20MG SYG) 10 mg Q2H PRN IV SBP GREATER THAN 160 07/07/25 19:00 08/06/25 18:59 Morphine Sulfate (morPHINE 2MG SYG) 2 mg Q4H PRN IVP MODERATE PAIN (4-6) 07/07/25 19:00 07/07/25 18:47 DC Ondansetron HCl (zoFRAN 4MG INJ) 4 mg Q8H PRN IVP NAUSEA/VOMITING 07/07/25 19:00 08/06/25 18:59 Pantoprazole Sodium (PROTonix 40MG INJ) 40 mg BID IVP 07/07/25 21:00 08/06/25 20:59 07/07/25 20:29 40 MG Sodium Chloride 1,000 ml @ 100 mls/hr Q10H IV 07/07/25 19:00 08/06/25 18:59 07/08/25 06:14 100 MLS/HR Diagnostics / Radiology: CT ABD PELVIS NON CON 07/07 No acute findings. Ms. Allison Dill, a 50-year-old female with a history of HIV, hypertension, hyperlipidemia, and cerebral palsy, presents to the emergency department with two episodes of small-volume hematemesis Hematemesis Assessment: Ms. Dill presents with two episodes of small-volume hematemesis s tarting yesterday, described as red blood, followed by severe abdominal cramping. This represents a new symptom for her with no previous occurrences. Given her HIV history, there is concern for potential opportunistic infections or HIV-related complications. The presence of hematemesis suggests an upper gastrointestinal source for the bleeding. Plan: - Perform upper endoscopy with biopsy to evaluate the source of bleeding and obtain biopsies for potential infections -Risks and benefits of procedure and anesthesia discussed with patient. -Pantoprazole 40mg IV BID -Trend hemoglobin and stool output +FOBT Likely related to above -Colonoscopy outpatient for CRC screening and further eval HIV -Patient has a known history of HIV on current antiretroviral therapy. No clinical evidence of AIDS. -Follow up outpatient Cerebral Palsy -Continue follow up outpatient Hypertension and Hyperlipidemia -Continue plan of care per primary THANK YOU FOR THIS CONSULT JONATHAN LOPEZ MD Jul 08, 2025 09:48
--- NOTE | 2025-07-08 12:00 | NUR ---
MET W PATIENT AT /[facility] . HEATHER LIVES WITH PARENTS, HAS MOBILITY AIDS: ROLLING WALKER AND ELECTRIC SCOOTER, AND SCOWER BENCH, HOME SAFE AND ACCESSIBLE, NO PROVIDER OR OTHER SERVICES. NO DC NEEDS ANTICIPATED, MOM WILL PROVIDE TRANSPORT AT DISCHARGE Addendum: 07/10/25 at 1834 by CONCEPCION AGUDELO RN CM Amended: Links added.
[2025-07-08] MEDS ORDERED: LOPERAMIDE HCL 2 MG CAP PO PRN (15:30)
[2025-07-08] MEDS: LOPERAMIDE HCL 2 MG CAP PO ONE (15:54)
[2025-07-08] MEDS ORDERED: PANT40TA55 PO (16:32)
--- NOTE | 2025-07-08 21:55 | DS ---
[facility] DISCHARGE SUMMARY Date Patient Seen: Jul 08, 2025 Time of Visit: 21:51 Supervising Physician: Dr. Weaver Primary Care Physician: [Dr. Melvi Flores ] Outpatient Specialists: [ ] Inpatient Consults: [Dr. Ritesh Kate-GI ] HOSPITAL COURSE: HPI (per admitting provider) Patient is a 50-year-old female with PMH significant for HIV, HTN, HLD and cerebral palsy who has presented to the ED concerning acute onset hematemesis described as 2 cups of bright red blood with no known triggers. She claims this is the first time it ever happened to her. She denies taking any blood thinners, NSAID abuse, ETOH dependence or DOAC; no prior HX of GI bleed, liver cirrhosis, or varices. She is currently on her menstrual cycle. Significant negatives are fever, chills, chest pain, diarrhea, constipation, melena or hematochezia. Pertinent positives are epigastric and LUQ abdominal pain. ED work up was unremarkable except for positive FOBT with stable H&H. CT AP was negative for acute findings. She was give a dose of IV Protonix and IM Bentyl. Physical assessment is unrevealing without abdominal tenderness or signs of ischemia or peritonitis. Abdomen is soft and with normoactive bowel sounds. Goals of care were discussed with the patient verbalizing understanding and agreement. The patient was treated for the following problems: Patient was admitted for an episode of hematemesis for which GI was consulted. Patient underwent upper endoscopy on this admission with no acute findings beside gastritis for which biopsies were taken. Patient is scheduled to follow up as outpatient with the GI clinic in 1-2 weeks. She is being discharged with prescription for eight weeks of 40 mg pantoprazole b.i.d.. Advised to avoid NSAIDs and acidic foods. Patient had no further episodes of hematemesis on this admission. ACTIVE PROBLEM LIST FOR THE HOSPITALIZATION: Hematemesis-POA, resolved Intractable LUQ pain-POA, resolved Elevated lipase without imaging signs of pancreatitis, suspect reactive-POA CHRONIC PROBLEMS: continue previous management per PCP unless otherwise indicated Primary HTN HLD HIV Cerebral palsy JUDGE CLERK FINDINGS/RECOMMENDATIONS: [ ] PROCEDURES: as mentioned above DISCHARGE MEDICATIONS: Pt hemodynamically stable and afebrile at time of discharge. PCP notified of patients admission, hospital course and discharge. PHYSICAL EXAM: GENERAL: alert, awake oriented x 3 HEENT: EOMI, Sclera non icteric, moist mucosa NECK: Supple, no JVD, trachea midline LUNGS: Clear breath sounds bilaterally. No wheezes HEART: Regular rate and rhythm. Normal S1 and S2, without murmurs ABD: Abdomen soft, nontender. Bowel sounds present EXT: No clubbing cyanosis or edema NEURO: Alert and oriented to person, follows commands FOLLOW-UP: Follow-up with PCP in 2-3 days Eight weeks of Protonix 40 mg b.i.d. Follow up with GI for biopsy results RECOMMENDATIONS: See Discharge Instructions This case was seen and discussed with my supervising physician. More than 30 minutes spent on discharge process, including evaluation of the patient, discussion with nursing staff, medication reconciliation and follow-up appointments JUAQUIN AGUILAR Jul 08, 2025 21:55
== END 2025-07-08 18:00 | disposition home or self-care (01) ==
LOC: EDH 13:16 → UNDOADMOB 18:34 → EDHIP 18:34 → INTOOBSV 18:34 → EDHIP 18:40 → 3DH 21:21
PROVIDERS: ADMIT Internal Medicine; ATTEND Internal Medicine
DX: K92.0 Hematemesis (principal); K90.3 Pancreatic steatorrhea; K29.70 Gastritis, unspecified, without bleeding; E78.00 Pure hypercholesterolemia, unspecified; I10 Essential (primary) hypertension; E78.5 Hyperlipidemia, unspecified; G80.9 Cerebral palsy, unspecified; Z88.0 Allergy status to penicillin; Z91.041 Radiographic dye allergy status; Z98.890 Other specified postprocedural states; Z79.899 Other long term (current) drug therapy; Z86.2 Personal history of diseases of the blood and blood-forming organs and certain disorders involving the immune mechanism
CPT/HCPCS: 96374; 96376 ×2; 96372; 99285; 80076; 84478; 80048; 84703 ×2; 83690 ×2; 85025 ×2; 85610; 85730; 85014 ×3; 85018 ×3; 86850; 86900; 86901; 36415 ×2; 74176; 96375; 82150; 83540; 83550; 83735; 84100; 80305; 82948 ×4; 88305; 88312; 43239; G0378 ×23; A4620 ×2; A4223 ×2; A4606 ×2; J2470 ×3; J0500; J2003; J2250; J2704; J3490 ×2; J2765; A4215 ×2; A4222 ×2; J7030 ×2; 82270